=== PATIENT | female | born 1980 | race Caucasian/White ===

== ENCOUNTER 2017-07-29 07:51 | Inpatient (IN) | payer MEDICAID ==
[2017-07-29] MEDS ORDERED: OXYTOCIN 30 UNITS/LR 500 ML IV (10:30)
[2017-07-29] MEDS ORDERED: METHYLERGONOVINE 0.2 MG INJ IM (10:30)
[2017-07-29] MEDS ORDERED: MISOPROSTOL 200 MCG TAB PR (10:30)
[2017-07-29] MEDS ORDERED: CARBOPROST 250 MCG INJ IM (10:30)
[2017-07-29] MEDS ORDERED: LIDOCAINE 1% (MPF) 30 ML INJ INJ (10:30)
[2017-07-29] MEDS ORDERED: BUTORPHANOL 2 MG INJ IV (10:30)
[2017-07-29 11:02] LABS: ADD MAN DIFF? NO
[2017-07-29 11:09] LABS: WHITE BLOOD COUNT 8.1 10^3/ul (4.8-10.8)
[2017-07-29 11:09] LABS: BASOPHILS % 0.1 % (0.0-2.0); EOSINOPHILS % 0.2 % (0.0-7.0); HEMATOCRIT 36.8 % (37.0-47.0); HEMOGLOBIN 12.5 g/dl (12.0-16.0); LYMPHOCYTES # 1.8 10^3/ul (0.8-2.9); LYMPHOCYTES % 22.2 % (15.0-51.0); MEAN CORPUSCULAR HEMOGLOBIN 29.6 pg (29.0-33.0); MEAN PLATELET VOLUME 12.2 fl (7.4-10.4); MONOCYTE # 0.5 10^3/ul (0.3-0.9); MONOCYTES % 6.3 % (0.0-11.0); NEUTROPHIL # 5.7 10^3/ul (1.6-7.5); NEUTROPHILS % 70.8 % (39.0-77.0); PLATELET COUNT 185 10^3/UL (140-415); RED BLOOD COUNT 4.23 10^6/ul (4.20-5.40); RED CELL DISTRIBUTION WIDTH 15.9 % (11.5-14.5)
[2017-07-29] MEDS: LACTATED RINGER'S 1,000 ML IV (11:37)
[2017-07-29 11:51] LABS: INR 0.92; PROTIME 12.4 Sec (11.9-14.9)
[2017-07-29 11:52] LABS: PARTIAL THROMBOPLASTIN TIME 29.3 Sec (25.0-35.0)
[2017-07-29 12:38] LABS: HIV 1&2 ANTIBODY NEGATIVE (NEGATIVE)
[2017-07-29] MEDS: OXYTOCIN 30 UNITS/LR 500 ML IV ×3 (13:24→16:14)
[2017-07-29 13:35] LABS: HEPATITIS B SURFACE ANTIGEN NEGATIVE (NEGATIVE)
[2017-07-29] MEDS: IBUPROFEN 600 MG TAB PO ×3 (15:36→23:34)
[2017-07-29] MEDS ORDERED: DIBUCAINE 1% 30 GM OINT PR (16:30)
[2017-07-29] MEDS ORDERED: HYDROCODONE/APAP (5/325) TAB PO ×2 (16:30)
[2017-07-29] MEDS ORDERED: ACETAMINOPHEN 325 MG TAB PO (16:30)
[2017-07-29] MEDS ORDERED: OXYCODONE/ASPIRIN (4.88/325) TAB PO ×2 (16:30)
[2017-07-29] MEDS ORDERED: ONDANSETRON 4 MG INJ IV (16:30)
[2017-07-29] MEDS: BENZOCAINE 20% 56 ML SPRAY TOP (17:54)
[2017-07-29] MEDS: LANOLIN 7 GM TUBE TOP (17:54)
[2017-07-29] MEDS: WITCH HAZEL/GLYCERIN PAD PR (17:54)
[2017-07-29] MEDS: SENNA/DOCUSATE NA (8.6MG/50MG) TAB PO (20:43)
[2017-07-29 22:03] LABS: RAPID PLASMA REAGIN NONREACTIVE (NR)
[2017-07-30] MEDS: IBUPROFEN 600 MG TAB PO ×4 (05:48→23:33)
[2017-07-30 08:49] LABS: ADD MAN DIFF? NO
[2017-07-30 08:59] LABS: BASOPHILS % 0.2 % (0.0-2.0); EOSINOPHILS % 0.4 % (0.0-7.0); HEMOGLOBIN 11.3 g/dl (12.0-16.0); LYMPHOCYTES % 19.9 % (15.0-51.0); MEAN CORPUSCULAR HEMOGLOBIN 30.1 pg (29.0-33.0); MEAN CORPUSCULAR HGB CONC 34.2 g/dl (32.0-37.0); MEAN PLATELET VOLUME 12.3 fl (7.4-10.4); MONOCYTE # 0.6 10^3/ul (0.3-0.9); MONOCYTES % 6.3 % (0.0-11.0); NEUTROPHIL # 7.3 10^3/ul (1.6-7.5); NEUTROPHILS % 72.9 % (39.0-77.0); PLATELET COUNT 159 10^3/UL (140-415); RED BLOOD COUNT 3.75 10^6/ul (4.20-5.40); RED CELL DISTRIBUTION WIDTH 16.1 % (11.5-14.5)
[2017-07-30] MEDS: SENNA/DOCUSATE NA (8.6MG/50MG) TAB PO ×2 (09:58→21:25)
[2017-07-31] MEDS: IBUPROFEN 600 MG TAB PO ×2 (05:25→12:06)
[2017-07-31] MEDS: SENNA/DOCUSATE NA (8.6MG/50MG) TAB PO (08:45)
[2017-07-31] MEDS: MEASLES,MUMPS,RUBELLA VACCINE INJ SC* (09:00)
[2017-08-01 12:46] LABS: RUBELLA ANTIBODY - IGG 2.04 index; RUBELLA ANTIBODY - IGM <20.00 AU/mL
== END 2017-07-31 18:01 | disposition home or self-care (01) | DRG 775 ==
LOC: OBT 07:51 → L-D 07:51 → OBT 10:13 → L-D 10:14 → PP1 15:45
PROVIDERS: Obstetrics & Gynecology
PROC: 10E0XZZ Delivery of Products of Conception, External Approach (ICD-10-PCS; principal; 2017-07-29)
DX: O80 Encounter for full-term uncomplicated delivery (principal); Z37.0 Single live birth; Z3A.38 38 weeks gestation of pregnancy
CPT/HCPCS: 76815; 76818; 85025; 85610; 85730; 86592; 86703; 86762; 86850; 86900; 86901; 87340; 88307; 99464